=== PATIENT | female | born 2000 | race Caucasian/White ===

== ENCOUNTER 2022-11-21 23:46 | Inpatient (IN) | payer MEDICAID ==
[2022-11-22] MEDS ORDERED: Lidocaine 1% 50 ML MDV INJECT PRN (03:37)
[2022-11-22] MEDS ORDERED: Tranexamic Acid 1,000 MG in Sodium Chloride 0.9% 100 ML IV PRN (03:37)
[2022-11-22] MEDS ORDERED: Terbutaline 1 MG/ML SDV SUBCUT PRN (03:37)
[2022-11-22] MEDS ORDERED: Ondansetron 4 MG/2 ML SDV IVPUSH PRN (03:37)
[2022-11-22] MEDS ORDERED: Sodium Chloride 0.9% 2.5 ML Syringe FLUSH PRN (03:37)
[2022-11-22] MEDS ORDERED: Carboprost Tromethamine 250 MCG/1 ML Amp IM PRN (03:37)
[2022-11-22] MEDS ORDERED: Methylergonovine 0.2 MG/1 ML Amp IM PRN (03:37)
[2022-11-22] MEDS ORDERED: Sodium Chloride 0.9% 20 ML SDV IV PRN (03:37)
[2022-11-22] MEDS ORDERED: Misoprostol 200 MCG Tab PO PRN (03:37)
[2022-11-22] MEDS ORDERED: Sodium Chloride 0.9% 10 ML Syringe FLUSH PRN (03:37)
[2022-11-22] MEDS ORDERED: Water For Irrigation,Sterile 1,000 ML Container IRR PRN (03:37)
[2022-11-22] MEDS ORDERED: Oxytocin/0.9 % Sodium Chloride 30 UNIT/500 ML BAG IV SCH ×2 (03:45)
[2022-11-22] MEDS: Butorphanol 1 MG/ML SDV IVPUSH PRN ×2 (04:28→07:44)
[2022-11-22] MEDS: Lactated Ringers 1,000 ML IV SCH ×3 (04:30→11:28)
[2022-11-22] MEDS ORDERED: Bupivacaine 0.5% 10 ML SDV ONE (09:30)
[2022-11-22] MEDS ORDERED: Ropivacaine/PF 400 MG/200 ML PCA ONE (09:30)
[2022-11-22] MEDS ORDERED: Phenylephrine HCl 0.5 MG/5 ML AMP IVPUSH PRN (10:00)
[2022-11-22] MEDS ORDERED: ePHEDrine 50 MG/ML SDV IVPUSH PRN ×2 (10:00)
[2022-11-22] MEDS ORDERED: Ropivacaine HCl/PF 400 MG in Premix Bag 1 BAG EPIDUR SCH (10:00)
[2022-11-22] MEDS ORDERED: Acetaminophen 500 MG Tab PO PRN ×2 (14:03)
[2022-11-22] MEDS ORDERED: Ibuprofen 400 MG Tab PO PRN (14:03)
[2022-11-22] MEDS ORDERED: Benzocaine/Menthol 20%-0.5% Spray 78 GM Cannister TOP PRN (14:03)
[2022-11-22] MEDS ORDERED: oxyCODONE 5 MG Tab PO PRN (14:03)
[2022-11-22] MEDS ORDERED: Docusate Sodium 100 MG Cap PO PRN (14:03)
[2022-11-22] MEDS ORDERED: Ibuprofen 800 MG Tab PO PRN (14:03)
[2022-11-22] MEDS ORDERED: Bisacodyl 10 MG Supp RECTAL PRN (14:03)
[2022-11-22] MEDS ORDERED: Lanolin 100% Cream 7 GM Tube TOP PRN (14:03)
[2022-11-22] MEDS ORDERED: Witch Hazel Medicated Pads 40/Jar TOP PRN (14:03)
== END 2022-11-23 15:52 | disposition home or self-care (01) | DRG 807 ==
LOC: MW.OB 23:46 → MW.OBCHECK 23:46 → MW.OB 11-22 03:38 → MW.OBCHECK 11-22 03:38 → OBSVTOIN 11-22 13:23 → MW.OB 11-22 18:12
PROVIDERS: ADMIT Obstetrics & Gynecology; ATTEND Obstetrics & Gynecology
PROC: 10E0XZZ Delivery of Products of Conception, External Approach (ICD-10-PCS; principal; 2022-11-22)
PROC: 0KQM0ZZ Repair Perineum Muscle, Open Approach (ICD-10-PCS; 2022-11-22)
PROC: 3E0R3BZ Introduction of Anesthetic Agent into Spinal Canal, Percutaneous Approach (ICD-10-PCS; 2022-11-22)
PROC: 00HU33Z Insertion of Infusion Device into Spinal Canal, Percutaneous Approach (ICD-10-PCS; 2022-11-22)
DX: O48.0 Post-term pregnancy (principal); Z37.0 Single live birth; O70.1 Second degree perineal laceration during delivery; O42.02 Full-term premature rupture of membranes, onset of labor within 24 hours of rupture; Z3A.40 40 weeks gestation of pregnancy
CPT/HCPCS: 01967; 36415; 51702; 59025; 59409; 82803; 85014; 85018; 85027; 86592; 86850; 86900; 86901; A9270-GY; J0595; J2405; J2590; J2795; J3490; J7120

== ENCOUNTER 2023-04-28 22:54 | Emergency (ER) | payer MEDICAID ==
[2023-04-28] MEDS ORDERED: Ondansetron 4 MG/2 ML SDV IVPUSH ONE (22:56)
[2023-04-28] MEDS ORDERED: Lactated Ringers 1,000 ML IV SCH (23:00)
[2023-04-28] MEDS ORDERED: Pantoprazole 40 MG in Sodium Chloride 0.9% 10 ML IVPUSH ONE (23:10)
[2023-04-28] MEDS ORDERED: Famotidine 20 MG Tab PO ONE (23:10)
[2023-04-28] MEDS ORDERED: Aluminum Hydroxide/Magnesium Hydroxide/Simethicone XS Susp 30 ML Cup PO ONE (23:10)
[2023-04-28 23:12] LABS: BASOPHILS PERCENT AUTO 0.3 % (0.0-1.5); EOSINOPHILS ABSOLUTE AUTO 0.3 K/uL (0.0-0.7); EOSINOPHILS PERCENT AUTO 2.7 % (0.0-7.0); HEMATOCRIT 43.3 % (36.0-46.0); HEMOGLOBIN 14.1 g/dL (12.0-16.0); LYMPHOCYTES ABSOLUTE AUTO 3.7 K/uL (0.6-2.4); LYMPHOCYTES PERCENT AUTO 39.8 % (16.0-40.0); MEAN CORPUSCULAR HEMOGLOBIN 26.9 pg (27.0-32.0); MEAN CORPUSCULAR HGB CONC 32.6 g/dL (31.0-37.0); MEAN CORPUSCULAR VOLUME 82.6 fL (80.0-98.0); MONOCYTES ABSOLUTE AUTO 0.6 K/uL (0.0-0.8); MONOCYTES PERCENT AUTO 6.2 % (0.0-15.0); NEUTROPHILS ABSOLUTE AUTO 4.7 K/uL (1.4-5.7); PLATELET COUNT,PLT 256 K/uL (150-400); RED BLOOD CELL COUNT 5.24 M/uL (4.30-5.90); WHITE BLOOD CELL COUNT,WBC 9.23 K/uL (4.0-11.0)
[2023-04-28 23:39] LABS: ALBUMIN 3.9 g/dL (3.4-5.0); BILIRUBIN TOTAL 0.2 mg/dL (0.2-1.0); CALCIUM 9.1 mg/dL (8.5-10.1); CARBON DIOXIDE,CO2 28.4 mmol/L (21.0-32.0); CREATININE 0.8 mg/dL (0.6-1.0); EST CRCL DRUG DOSING (CG) 80.57 mL/min; POTASSIUM,K 3.7 mmol/L (3.5-5.1); PROTEIN TOTAL,TP 7.8 g/dL (6.4-8.2)
[2023-04-28] MEDS ORDERED: Iopamidol 755 MG/ML 500 ML Multipack Bottle IVPUSH ONE (23:54)
[2023-04-29 01:25] LABS: APPEARANCE,URINE CLEAR; BILIRUBIN,URINE NEGATIVE (NEGATIVE); COLOR,URINE YELLOW; GLUCOSE,URINE NEGATIVE (NEGATIVE); KETONES,URINE NEGATIVE (NEGATIVE); LEUKOCYTE ESTERASE,URINE NEGATIVE (NEGATIVE); NITRITE,URINE NEGATIVE (NEGATIVE); OCCULT BLOOD,URINE NEGATIVE (NEGATIVE); PROTEIN,URINE NEGATIVE (NEGATIVE); UROBILINOGEN,URINE 0.2 EU/dL (<2.0)
== END 2023-04-29 02:06 | disposition home or self-care (01) ==
LOC: MW.ED 22:54
DX: K20.90 Esophagitis, unspecified without bleeding (principal); J45.909 Unspecified asthma, uncomplicated; Z86.16 Personal history of COVID-19; Z20.822 Contact with and (suspected) exposure to COVID-19
CPT/HCPCS: 36415; 74177; 80053; 81003; 83690; 84484; 84703; 85025; 87635; 93005; 96361; 96374; 96375; 99285; A9270; C9113; J2405; J3490; J7120; Q9967; 93010; 99284; U0002

== ENCOUNTER 2023-06-11 15:30 | Emergency (ER) | payer MEDICAID ==
[2023-06-11] MEDS ORDERED: Sodium Chloride 0.9% 1,000 ML IV ONE (16:31)
[2023-06-11] MEDS ORDERED: Ondansetron 4 MG/2 ML SDV IVPUSH ONE (16:31)
[2023-06-11] MEDS ORDERED: Sodium Chloride 0.9% 10 ML Syringe FLUSH PRN (16:31)
[2023-06-11] MEDS ORDERED: Sodium Chloride 0.9% 2.5 ML Syringe FLUSH PRN (16:31)
[2023-06-11] MEDS ORDERED: Alum Hydro/Mag Hydro/Simeth XS 15 ML, Lidocaine 2% 5 ML PO ONE ×2 (16:32)
[2023-06-11] MEDS ORDERED: Morphine 4 MG/ML Syringe IVPUSH ONE (16:34)
[2023-06-11 17:09] LABS: BASOPHILS ABSOLUTE AUTO 0.07 K/uL (0.00-0.20); BASOPHILS PERCENT AUTO 0.6 % (0.0-1.0); EOSINOPHILS ABSOLUTE AUTO 0.12 K/uL (0.00-0.45); EOSINOPHILS PERCENT AUTO 1.1 % (0.0-6.0); HEMATOCRIT 43.4 % (37.0-47.0); HEMOGLOBIN 14.6 g/dL (12.0-16.0); IMMATURE GRAN ABSOLUTE AUTO 0.05 K/uL (0.00-0.05); IMMATURE GRAN PERCENT AUTO 0.4 % (0.0-0.4); LYMPHOCYTES ABSOLUTE AUTO 1.07 K/uL (1.00-4.80); LYMPHOCYTES PERCENT AUTO 9.4 % (24.0-44.0); MEAN CORPUSCULAR HEMOGLOBIN 27.3 pg (28.0-32.0); MEAN CORPUSCULAR HGB CONC 33.6 g/dL (32.0-36.0); MEAN CORPUSCULAR VOLUME 81.1 fL (83.0-99.0); MEAN PLATELET VOLUME 9.9 fL (9.4-12.3); MONOCYTES ABSOLUTE AUTO 0.61 K/uL (0.00-0.80); MONOCYTES PERCENT AUTO 5.3 % (0.0-8.0); NEUTROPHILS ABSOLUTE AUTO 9.49 K/uL (1.80-7.70); NEUTROPHILS PERCENT AUTO 83.2 % (41.0-71.0); PLATELET COUNT,PLT 262 K/uL (150-400); RED BLOOD CELL COUNT 5.35 M/uL (4.10-5.30); WHITE BLOOD CELL COUNT,WBC 11.41 K/uL (3.9-11.3)
[2023-06-11 18:12] LABS: ALBUMIN 4.1 g/dL (3.4-5.0); BILIRUBIN TOTAL 0.3 mg/dL (0.2-1.0); CALCIUM 9.2 mg/dL (8.5-10.1); CARBON DIOXIDE,CO2 25.7 mmol/L (21.0-32.0); CREATININE 0.8 mg/dL (0.6-1.0); EST CRCL DRUG DOSING (CG) 80.57 mL/min; POTASSIUM,K 3.9 mmol/L (3.5-5.1); PROTEIN TOTAL,TP 8.4 g/dL (6.4-8.2)
== END 2023-06-11 18:40 | disposition home or self-care (01) ==
LOC: MW.ED 15:30
DX: O20.0 Threatened abortion (principal); Z86.16 Personal history of COVID-19; Z3A.00 Weeks of gestation of pregnancy not specified
CPT/HCPCS: 36415; 71045; 76705; 80053; 83690; 85025; 96361; 96374; 96375; 99284; A9270; J2270; J2405; J3490; J7030

== ENCOUNTER 2023-08-14 07:56 | Day surgery (SDC) | payer MEDICAID ==
[~2023-08-14 07:56] MED LIST: Lactated Ringers 1,000 ML IV SCH; cefOXitin 2 GM in Sodium Chloride 0.9% 100 ML IV ONE
[2023-08-14] MEDS ORDERED: Bupivacaine 0.5% 30 ML SDV ONE (08:05)
[2023-08-14] MEDS ORDERED: Rocuronium Bromide 50 MG/5 ML Syringe ONE (08:07)
[2023-08-14] MEDS ORDERED: propofoL 100 ML ONE (08:09)
[2023-08-14] MEDS ORDERED: Bupivacaine 0.25% 30 ML SDV ONE (08:09)
[2023-08-14] MEDS ORDERED: Propofol 200 MG/20 ML SDV ONE (08:11)
[2023-08-14] MEDS ORDERED: fentaNYL 100 MCG/2 ML SDV ONE ×2 (08:11→10:14)
[2023-08-14] MEDS ORDERED: Ondansetron 4 MG/2 ML SDV IVPUSH PRN (08:24)
[2023-08-14] MEDS ORDERED: fentaNYL 50 MCG/ML SDV IVPUSH PRN (08:24)
[2023-08-14] MEDS ORDERED: dexmedeTOMIDine HCl 200 MCG/2 ML SDV ONE (08:24)
[2023-08-14] MEDS ORDERED: Albuterol 0.083% 2.5 MG/3 ML Neb Soln NEB PRN (08:24)
[2023-08-14] MEDS ORDERED: Naloxone 0.4 MG/ML SDV IVPUSH PRN (08:24)
[2023-08-14] MEDS ORDERED: Morphine 2 MG/ML SYRINGE IVPUSH PRN ×2 (08:24→10:48)
[2023-08-14] MEDS ORDERED: HYDROmorphone 1 MG/ML Syringe IVPUSH PRN (08:24)
[2023-08-14] MEDS ORDERED: Water For Injection, Sterile 20 ML ONE (08:24)
[2023-08-14] MEDS ORDERED: droPERidol 5 MG/2 ML SDV IVPUSH PRN (08:24)
[2023-08-14] MEDS ORDERED: Metoclopramide 10 MG/2 ML SDV IVPUSH PRN (08:24)
[2023-08-14] MEDS ORDERED: cefOXitin 1 GM Vial ONE (09:36)
[2023-08-14] MEDS ORDERED: Magnesium Sulfate (4.06 MEQ/ML) 5 GM/10 ML SDV ONE (09:36)
[2023-08-14] MEDS ORDERED: Indocyanine Green 25 MG SDV ONE (09:40)
[2023-08-14] MEDS ORDERED: Ondansetron 4 MG/2 ML SDV ONE (09:49)
[2023-08-14] MEDS ORDERED: Dexamethasone 4 MG/ML 5 ML MDV ONE (09:49)
[2023-08-14] MEDS ORDERED: Ketorolac 30 MG/ML SDV ONE (10:25)
[2023-08-14] MEDS ORDERED: Sugammadex Sodium 200 MG/2 ML VIAL ONE (10:25)
[2023-08-14] MEDS ORDERED: Acetaminophen/HYDROcodone 325-5 MG Tab PO PRN ×2 (10:48→11:22)
[2023-08-14] MEDS ORDERED: Lactated Ringers 1,000 ML IV SCH (11:00)
== END 2023-08-14 12:44 | disposition home or self-care (01) ==
LOC: MW.SDS 07:56
PROVIDERS: ATTEND Surgery
DX: K80.00 Calculus of gallbladder with acute cholecystitis without obstruction (principal); R07.9 Chest pain, unspecified; K80.20 Calculus of gallbladder without cholecystitis without obstruction; R11.2 Nausea with vomiting, unspecified; K80.50 Calculus of bile duct without cholangitis or cholecystitis without obstruction; Z79.899 Other long term (current) drug therapy
CPT/HCPCS: 47562; 81025; J0131; J0665; J0694; J1100; J1885; J2405; J2704; J3010; J3475; J3490; J7120; 00790; 64488